=== PATIENT | male | born 1995 | race Caucasian/White ===

== ENCOUNTER 2017-04-30 01:55 | Emergency (ER) | payer OTHER, MEDICAID, SELFPAY ==
[2017-04-30 01:57] VITALS: BP 132/88; PULSE 92; RESP 17; TEMP 36.5; O2SAT 99; BMI 26.9
--- NOTE | 2017-04-30 02:35 | ED.DCSUM_ITS ---
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 His left arm was exposed to grease resulting in a grease burn that he was nursing at home. He reports there was a sudden increase in pain and swelling and redness beginning several hours ago resulting in his visit to the emergency department. He did report that the skin blister upon initial injury. He denies fevers. He reports pain with range of motion. His tetanus status is unknown. Physical Examination: [] Afebrile, vital signs stable. Young male in no acute distress. There is an area of healing burn on the left thumb, less than 1% body surface area, consistent with second-degree healing burn. There is an area of erythema around the burn consistent with early cellulitis of the thumb. There is no lymphatic streaking. There is pain on palpation and with range of motion testing. Good cap refill to the distal thumb. Test Results: [] None. Emergency Department Course and Treatment: [] Patient given tetanus update in the emergency department. Patient given oral Bactrim DS and Keflex in the emergency department. Patient given prescriptions for Bactrim DS and Keflex. He was instructed to take these medications for the next 10 days. He was instructed to have follow-up within 72 hours to make sure the wound was healing appropriately. Treatment Plan: [] Follow up with primary care physician and take outpatient antibiotics. Disposition: [] Discharge, stable. Impression: [] Left thumb burn less than 1% body surface area, second-degree. Left hand cellulitis This note was generated with [employer] dictation software. It may contain incorrect words, spelling, and punctuation that were not noted in review of the chart prior to signing ED Disposition - Plan for ED Patient: Chief Complaint: Burn Referrals: Care Physician,No Primary [Primary Care Provider] -
--- NOTE | 2017-04-30 02:35 | ED.DEP ---
ED Disposition - Plan for ED Patient: Disposition: Home or Assisted Living Chief Complaint: Burn Instructions: ED Burn Wound Check FU Infec Prescriptions: Cephalexin [Keflex] 500 mg PO Q6 #40 cap Smz/Tmp Ds [Bactrim Ds] 1 tab PO BID #20 tab Referrals: Care Physician,No Primary [Primary Care Provider] - Corporate,Care [GROUP OF PHYSICIANS] -
[2017-04-30] MEDS: Smz/Tmp Ds Tablet 1 TABLET PO (02:42)
[2017-04-30] MEDS: Diphth,Pertuss(Acell),Tet Vac 0.5 ML Vial IM (02:42)
[2017-04-30] MEDS: Cephalexin 250 MG Capsule 500 MG PO (02:42)
[2017-04-30 03:10] VITALS: PULSE 86; RESP 16; O2SAT 98
== END 2017-04-30 03:11 | disposition home or self-care (01) ==
PROVIDERS: Emergency Provider Emergency Medicine
DX: T23.212A Burn of second degree of left thumb (nail), initial encounter (principal); T31.0 Burns involving less than 10% of body surface; L03.012 Cellulitis of left finger; B96.89 Other specified bacterial agents as the cause of diseases classified elsewhere; X10.2XXA Contact with fats and cooking oils, initial encounter; Y93.89 Activity, other specified; Y92.511 Restaurant or cafe as the place of occurrence of the external cause; Y99.0 Civilian activity done for income or pay; I10 Essential (primary) hypertension; F32.9 Major depressive disorder, single episode, unspecified; E66.9 Obesity, unspecified; Z68.26 Body mass index [BMI] 26.0-26.9, adult; Z79.899 Other long term (current) drug therapy; Z72.0 Tobacco use
CPT/HCPCS: 90715; 99284

== ENCOUNTER 2017-05-18 11:29 | Emergency (ER) | payer MEDICAID, SELFPAY ==
[2017-05-18 11:30] VITALS: BP 148/80; PULSE 90; RESP 18; TEMP 36.4; O2SAT 98; BMI 25.7
[2017-05-18 11:46] VITALS: O2SAT 96
--- NOTE | 2017-05-18 11:49 | CT_ITS ---
STUDY: CT BRAIN WITHOUT CONTRAST REASON FOR EXAM: Male, 21 years old. Fall with injury to the head RADIATION DOSAGE (If Supplied By Facility): CTDIvol = ( 60.81 ) mGy, DLP = ( 1067.08 ) mGycm TECHNIQUE: Transaxial CT imaging of the brain was performed without administration of intravenous contrast material. Individualized dose optimization techniques were used for this CT. COMPARISON: 02/11/2017 FINDINGS: Normal soft tissue structures. Normal calvarium. Normal size ventricles and extra-axial spaces for the patient's age. Normal white matter tracts of the cerebral hemispheres. Normal basal ganglia and thalami. Normal brainstem. Normal cerebellum. There is no intracranial hemorrhage. There are no findings of an acute ischemic infarction. Normal visualized paranasal sinuses. CT/Brain/Head without Contrast IMPRESSION: Normal unenhanced CT scan of the brain. Electronically Signed: Anmol Cruz DO at 13:14 EST Tel , Service support ,
--- NOTE | 2017-05-18 11:52 | ED.DCSUM_ITS ---
- ER Visit Summary Date of Service: 05/18/17 Chief Complaint: [Fall] History of Present Illness: The patient is a 21 M [presents the emergency department after fall. He thinks he tripped over a towel in the kitchen. He at the back of his head but is not sure on what. He states he was unresponsive for about an hour. He complains of dizziness headache nausea. He has had no vomiting. He does not exactly remember the accident. He denies any neck pain or back pain or any other injury. He has a history of anxiety and GERD as well as hypertension. He takes HCTZ. He denies any chest pain or shortness of breath no abdominal pain no melena.] Physical Examination: [] NC contusion with over lying abrasion on occiput PERRL EOMI MIDFACE STABLE NO DENTAL TRAUMA NECK NONTENDER, FROM WITHOUT PAIN RRR NO MURMURS, RUBS, OR GALLOPS CTAB, CHEST NONTENDER, NO BRUISING ABDOMEN SOFT NONTENDER NORMAL BOWEL SOUNDS, NO ECCHYMOSIS EXTREMITIES WITH NO DEFORMITY, SWELLING OR ECCHYMOSIS, NVIT X4 CRANIAL NERVES IN TACT, NO MOTOR SENSORY DEFICITS BACK WITH NO MIDLINE TENDERNESS SKIN NORMAL, NO ABRASIONS OR LACERATIONS Test Results: [] Emergency Department Course and Treatment: [Labs were obtained and concerning for mild dehydration. He was given fluids. CT of the head shows no acute process. At this time patient will be given as prescription for Zofran head injury precautions and referral for follow-up. Him and his girlfriend were given precautions for which to return.] Treatment Plan: [] Disposition: [Discharge] Impression: Fall with head injury] This note was generated with [employer] dictation software. It may contain incorrect words, spelling, and punctuation that were not noted in review of the chart prior to signing ED Disposition - Plan for ED Patient: Chief Complaint: Fall Referrals: Care Physician,No Primary [Primary Care Provider] -
[2017-05-18] MEDS: Ondansetron 4 MG/2 ML Vial IV (12:00)
[2017-05-18 12:14] LABS: Absolute Lymphocyte Count 2.34 X10^3/ul (0.83-4.51); Absolute Neutrophil Count 3.5 X10^3/uL (2.0-7.7); Basophil# 0.02 X10^3/uL; Basophil% 0.3 % (0-1); Eosinophil# 0.15 X10^3/uL; Eosinophils% 2.2 % (0-5); Hematocrit 48.2 % (40-54); Hemoglobin 16.7 g/dl (13.0-16.5); Lymphocyte # 2.34 X10^3/ul (4.0); Lymphocyte % 34.1 % (19-41); Mean Corp Hgb Conc 34.6 g/gl (32-36); Mean Corpuscular Hgb 30.5 pg (27.0-32.0); Mean Platelet Vol. 10.1 fl (6.2-12.0); Monocyte# 0.82 X10^3/uL; Neutrophil # 3.53 X10^3/uL (2.7-7.7); Neutrophil % 51.4 % (47-70); POSITIVE COUNT NO; POSITIVE DIFFERENTIAL NO; POSITIVE MORPHOLOGY NO; Platelet Count 218 K/mm3 (150-450); RBC Distribution Width CV 11.9 % (11.6-14.6); RBC Distribution Width SD 38.2 fl (35.1-43.9); Red Blood Count 5.48 M/mm3 (4.6-6.2); White Blood Count 6.9 K/mm3 (4.4-11.0)
[2017-05-18 12:27] LABS: BUN 21 mg/dL (7-18); Creatinine, Serum 1.04 mg/dL (0.70-1.30); Glucose 90 mg/dL (74-106)
[2017-05-18 12:28] LABS: Anion Gap 7 (5-15); BUN/Creat Ratio 20.2 RATIO (10-20); Calcium,Total 9.1 mg/dL (8.5-10.1); Chloride 104 mmol/L (98-107); EST Glomerular Filtration Rate 94 mL/min (>60); Est Glom Filt Rate - Afr Amer 114 mL/min (>60); Estimated Creatinine Clearance 118.66 ml/min; Potassium 3.8 mmol/L (3.5-5.1); Sodium Level 139 mmol/L (136-145)
[2017-05-18] MEDS: 0.9% Normal Saline 1,000 ML 999 ML IV (12:46)
[2017-05-18 13:38] VITALS: BP 127/75; PULSE 69; RESP 13; O2SAT 95
--- NOTE | 2017-05-18 13:54 | ED.DEP ---
ED Disposition - Plan for ED Patient: Chief Complaint: Fall Instructions: ED Fall Uncertain Cause, ED Head Injury Closed Prescriptions: Ondansetron [Zofran Odt] 4 mg PO Q8H PRN PRN #10 tablet PRN Reason: Nausea Referrals: Care Physician,No Primary [Primary Care Provider] - Maritza Rainey DO [STAFF PHYSICIAN] - 3-5 Days
[2017-05-18 14:06] VITALS: BP 123/84; PULSE 71; RESP 16; O2SAT 98
== END 2017-05-18 14:07 | disposition home or self-care (01) ==
PROVIDERS: Emergency Provider Emergency Medicine
DX: S00.03XA Contusion of scalp, initial encounter (principal); S00.01XA Abrasion of scalp, initial encounter; W01.0XXA Fall on same level from slipping, tripping and stumbling without subsequent striking against object, initial encounter; Y93.9 Activity, unspecified; Y92.000 Kitchen of unspecified non-institutional (private) residence as the place of occurrence of the external cause; E86.0 Dehydration; I10 Essential (primary) hypertension; K21.9 Gastro-esophageal reflux disease without esophagitis; F41.9 Anxiety disorder, unspecified; Z79.899 Other long term (current) drug therapy; Z72.0 Tobacco use
CPT/HCPCS: 70450; 80048; 85025; 96361; 96374; 96375; 99283; J7030; A4216; J2405

== ENCOUNTER 2017-07-25 16:13 | Emergency (ER) | payer SELFPAY ==
[2017-07-25 16:14] VITALS: BP 138/73; PULSE 98; RESP 18; TEMP 36.6; O2SAT 97; BMI 25.7
--- NOTE | 2017-07-25 16:21 | RAD_ITS ---
STUDY: X-RAY - RIGHT ELBOW REASON FOR EXAM: Male, 21 years old. Fall TECHNIQUE: 3 view(s) of the elbow. COMPARISON: None. FINDINGS: There is no evidence of fracture or dislocation. There are no significant degenerative changes. There are no radiodense foreign bodies. RAD/Elbow min 3 Views IMPRESSION: No fracture or dislocation. Electronically Signed: Damián Snider, at 16:58 EDT Tel , Service support ,
--- NOTE | 2017-07-25 16:21 | RAD_ITS ---
STUDY: X-RAY - RIGHT WRIST REASON FOR EXAM: Male, 21 years old. Fall TECHNIQUE: 3 view(s) of the wrist were obtained. COMPARISON: None. FINDINGS: There is no evidence of fracture or dislocation. There are no significant degenerative changes. There are no radiodense foreign bodies. RAD/Wrist min 3 Views IMPRESSION: No fracture or dislocation. Electronically Signed: Damián Snider, at 16:59 EDT Tel , Service support ,
--- NOTE | 2017-07-25 16:22 | ED.VISSUMM ---
- ER Visit Summary Date of Service: 07/25/17 Chief Complaint: Right arm injury History of Present Illness: The patient is a 21 M presents to the emergency department right arm injury. The patient states a few days ago, he tripped on a pine cone he was playing with his dog. He landed on an outstretched right wrist. He states he has some mild pain, but over the past 3 days pain is worsened. He states is getting some tingling into his hand. He did not strike his head. He denies loss of consciousness. He denies any other injury. He has not taken anything for his pain. Physical Examination: Exam is relatively unremarkable. Skin is intact. Patient has 2+ radial ulnar pulses. Anterior interosseous, posterior interosseous, ulnar nerve preserved. There is no laxity of the wrist. He does have some mild tenderness to palpation. There is no pain with pronation or supination of the elbow but there is some pain with palpation. Shoulders normal. Compartments are soft. Test Results: [] Emergency Department Course and Treatment: The patient has normal pulses. His symptoms do seem more consistent with ligamentous or muscular strain. However, I did obtain x-rays of the wrist and elbow. There is no evidence of acute fracture dislocation. The patient will be treated with anti-inflammatories and antispasmodics. He will continue ice and elevation. He will be discharged, return with any worsening symptoms. Treatment Plan: [] Disposition: Discharge Impression: 1. Right wrist sprain This note was generated with [employer] dictation software. It may contain incorrect words, spelling, and punctuation that were not noted in review of the chart prior to signing ED Disposition - Plan for ED Patient: Chief Complaint: Upper Extremity Injury Instructions: ED Sprain Wrist Prescriptions: Naproxen [Naprosyn] 500 mg PO BID PRN #20 tab Cyclobenzaprine [Flexeril] 10 mg PO TID PRN #20 tab PRN Reason: Muscle Spasm Referrals: Care Physician,No Primary [Primary Care Provider] -
[2017-07-25] MEDS: Naproxen 500 MG Tablet PO (16:25)
[2017-07-25 17:08] VITALS: PULSE 90; RESP 14; O2SAT 98
== END 2017-07-25 17:08 | disposition home or self-care (01) ==
PROVIDERS: Emergency Provider Emergency Medicine
DX: S63.501A Unspecified sprain of right wrist, initial encounter (principal); W18.09XA Striking against other object with subsequent fall, initial encounter; Y93.89 Activity, other specified; Y92.9 Unspecified place or not applicable; Y99.8 Other external cause status
CPT/HCPCS: 73080; 73110; 99282

== ENCOUNTER 2018-09-10 12:58 | Emergency (ER) | payer MEDICAID, SELFPAY ==
[2018-09-10 12:58] VITALS: BP 112/76; PULSE 60; RESP 16; TEMP 36.4; O2SAT 100; BMI 24.4
[2018-09-10] MEDS: Naproxen 500 MG Tablet PO (13:54)
--- NOTE | 2018-09-10 14:00 | RAD_ITS ---
STUDY: X-RAY - LEFT SHOULDER REASON FOR EXAM: Male, 22 years old. Injury. Left shoulder pain for 2 days. TECHNIQUE: 4 view(s) of the shoulder. COMPARISON: None. FINDINGS: Normal glenohumeral articulation. Normal acromioclavicular joint. Normal acromion. Normal humeral head and visualized proximal humerus. The soft tissue structures are unremarkable. Normal visualized pulmonary apex. RAD/Shoulder min 2 Views IMPRESSION: Normal x-ray examination of the shoulder. Electronically Signed: Juan Francisco Sahu MD at 14:13 EDT Tel , Service support ,
--- NOTE | 2018-09-10 14:51 | ED.VISSUMM ---
- ER Visit Summary Date of Service: 09/10/18 Chief Complaint: Left shoulder injury History of Present Illness: The patient is a 22 M who injured his left shoulder yesterday. Patient states he went to jump up on his porch when his dog ran alongside him. His feet were knocked out from under him and he landed on his left arm. He is complaining of pain to the posterior left shoulder. He is right-hand dominant. He denies paresthesias. Physical Examination: Vital signs unremarkable. Patient sitting upright in bed no acute distress. Head and neck examination unremarkable with no sign of trauma. Heart is regular rate and rhythm. Lungs sounds are clear. Left upper extremity examination reveals tenderness over the posterior aspect of the left shoulder. He has normal range of motion. He is neurovascularly intact distally. Test Results: Left shoulder x-rays are unremarkable. Emergency Department Course and Treatment: Patient is given naproxen for pain. Test results are discussed with the patient. He will be given a sling to wear for comfort. He is instructed to come out of this 3 or 4 times a day to work on range of motion. He will be given prescription for naproxen. Treatment Plan: [] Disposition: Discharge Impression: Left shoulder sprain This note was generated with [employer] dictation software. It may contain incorrect words, spelling, and punctuation that were not noted in review of the chart prior to signing ED Disposition - Plan for ED Patient: Disposition: Home or Assisted Living Instructions: ED Sprain Shoulder Prescriptions: Naproxen [Naprosyn] 500 mg PO BID PRN PRN #20 tablet PRN Reason: Pain Referrals: Cr Guerra MD [STAFF PHYSICIAN] - 10-14 Days if not better
[2018-09-10 15:09] VITALS: PULSE 77; RESP 15
== END 2018-09-10 15:10 | disposition home or self-care (01) ==
PROVIDERS: Emergency Provider Physician Assistant Medical
DX: S43.402A Unspecified sprain of left shoulder joint, initial encounter (principal); W54.1XXA Struck by dog, initial encounter; Y93.39 Activity, other involving climbing, rappelling and jumping off; Y92.007 Garden or yard of unspecified non-institutional (private) residence as the place of occurrence of the external cause
CPT/HCPCS: 73030; 99283

== ENCOUNTER 2019-03-15 21:36 | Emergency (ER) | payer SELFPAY ==
[2019-03-15 21:37] VITALS: BP 145/76; PULSE 88; RESP 16; TEMP 36.6; O2SAT 99; BMI 24.4
--- NOTE | 2019-03-15 21:52 | CT_ITS ---
STUDY: CT ABDOMEN AND PELVIS WITHOUT CONTRAST REASON FOR EXAM: Male, 23 years old. Urinary frequency and left testicular tenderness. RADIATION DOSAGE (If Supplied By Facility): CTDIvol = ( 6.47 ) mGy, DLP = ( 355.72 ) mGycm TECHNIQUE: Transaxial images were obtained from the dome of the diaphragm to the symphysis pubis without oral contrast, and without intravenous contrast. Sagittal and coronal images were reconstructed. Individualized dose optimization techniques were used for this CT. COMPARISON: None. FINDINGS: The visualized lung bases are unremarkable. The visualized portions of the heart are within normal limits. Normal liver. Normal gallbladder and extrahepatic biliary system. Normal spleen. Normal pancreas. Normal bilateral adrenal glands. Normal right kidney. Normal left kidney. Normal visualized stomach. Normal small intestine. Normal colon. The appendix is visualized and appears normal. Normal abdominal aorta. Normal inferior vena cava. Normal retroperitoneum. Normal urinary bladder. Shotty bilateral inguinal lymph nodes. Normal abdominal wall. Normal osseous structures. CT/Abdomen/Pelvis without Cont IMPRESSION: Shotty bilateral inguinal lymph nodes. Largest long axis 2 centimeters. Otherwise, normal abdomen and pelvic CT exam. Electronically Signed: Maddi Fish MD at 22:38 EST , Service support ,
--- NOTE | 2019-03-15 21:53 | ED.VIS.GEN ---
History of Present Illness Chief Complaint: Male Pain/Injury Informant: Patient Onset: Today Context: Sudden Onset Timing: Intermittent Current Severity: Moderate Maximum Severity: Moderate Narrative: The patient is an otherwise healthy 23-year-old male with no significant medical history that presents to the emergency department with flank pain and bladder spasm. Patient states he woke this morning and felt like he had the urge to urinate. He states when he would go, he felt like he was having spasms in his bladder. He states it would come and go. He felt like there was some burning when he would urinate. He is currently sexually active but denies any risk of sexually transmitted disease. He denies any fevers or chills. He has no history of abdominal surgery. He is never had a kidney stone. Prior similar symptoms: No Recent Illness/Hospitalization: No Past Medical History - Allergies and Home Meds Allergies/Adverse Reactions: Allergies amoxicillin Adverse Reaction (Verified 09/10/18 13:01) Nausea Penicillins Adverse Reaction (Verified 09/10/18 13:01) Nausea Primary Care Physician: Care Physician,No Primary [Primary Care Provider] - Prior records reviewed: Yes Past Medical History: None Surgical History: no surgical history Smoking Status: Current every day smoker Review of Systems General: Denies: Chills, Fever, Sweats Eyes: Denies: Visual changes - bilaterally, Diplopia ENT: Denies: Rhinorrhea, Sore throat Cardiovascular: Denies: Chest pain, Palpitations Respiratory: Denies: Dyspnea, Cough, Dyspnea on exertion Gastrointestinal: Denies: Abdominal pain, Nausea, Vomiting, Diarrhea, Melena, Hematochezia Genitourinary: Reports: Dysuria, Frequency. Denies: Hematuria Musculoskeletal: Denies: Back pain, Extremity Pain Skin: Denies: Rash, Wounds Neurological: Denies: Headache, Weakness, Numbness Physical Exam Vital Signs/Narrative: Vital Signs Temp Pulse Resp BP Pulse Ox 03/15/19 21:37 97.8 F 88 16 145/76 H 99 Inital Vital Signs reviewed: Yes General: Well nourished, Well developed, No Acute Distress Head: Normocephalic, Atraumatic Eyes: Perrl, EOMI ENT: Moist mucous membranes, No rhinorrhea Neck: Supple, Nontender Cardiovascular: Regular rate, Regular rhythm, No murmurs Respiratory: No distress, CTA bilaterally, Chest nontender Abdomen: Soft, Nontender, Nondistended, Normal bowel sounds : - - Normal cremasteric. Testicles nontender. No evidence of torsion. No penile discharge. Back: Nontender, Normal Inspection Extremities: Nontender, No edema Skin: Normal color, No rash Neurological: Alert, Oriented x3, Cranial nerves II-XII grossly intact, Normal Strength, Normal Sensation Psychological: Normal affect, Normal Mood Diagnostic/Tx/Re-eval Clinical Impression(s) from Imaging Studies Abdomen/Pelvis CT 03/15/19 21:52 IMPRESSION: Shotty bilateral inguinal lymph nodes. Largest long axis 2 centimeters. Otherwise, normal abdomen and pelvic CT exam. Electronically Signed: Maddi Fish MD at 22:38 EST , Service support , Abnormal Lab Results 03/15/19 03/15/19 03/15/19 21:50 22:00 22:00 WBC 7.9 RBC 5.17 Hgb 15.7 Hct 44.9 MCV 86.8 MCH 30.4 MCHC 35.0 RDW Std Deviation 35.0 L RDW Coeff of Carlos 11.0 L Plt Count 231 MPV 10.0 Immature Gran % (Auto) 0.300 Neut % (Auto) 55.2 Lymph % (Auto) 33.2 [place] % (Auto) 8.6 Eos % (Auto) 1.9 Baso % (Auto) 0.8 Absolute Neuts (auto) 4.4 Absolute Lymphs (auto) 2.62 Nucleated RBC % 0 Sodium 141 Potassium 3.8 Chloride 109 H Carbon Dioxide 29.0 Anion Gap 3 L BUN 15 Creatinine 1.15 Estim Creat Clear Calc 105.49 Est GFR (MDRD) Af Amer 100 Est GFR (MDRD) Non-Af 83 BUN/Creatinine Ratio 13.0 Glucose 80 Calcium 8.9 Urine Color Yellow Urine Clarity Clear Urine pH 6.5 Ur Specific [place] 1.010 Urine Protein Negative Urine Glucose (UA) Normal Urine Ketones Negative Urine Occult Blood 150 H Urine Nitrite Negative Urine Bilirubin Negative Urine Urobilinogen Normal Ur Leukocyte Esterase Negative Urine RBC 0-5 SEEN Urine WBC 0 SEEN Ur Squamous Epith Cells 0-5 SEEN Urine Bacteria 0 SEEN Urine Mucus 0 SEEN - Medical Decision Making Patient symptoms do seem consistent with kidney stone. He is a colicky pain, bladder spasm, and pain is referred into his testicle. Urine was obtained which did show blood, but no evidence of infection. Labs are unremarkable. CT does not show any definitive evidence of stone, but based on his symptoms, I do feel that treating him would be appropriate. The patient is resting comfortably after Toradol. He will be given anti-inflammatories and antinausea medication. He was counseled on concerning symptoms and reasons to return. He will be discharged home. Impression 1. Urolithiasis ED Disposition - Plan for ED Patient: Instructions: KIDNEY STONE w/ Colic Prescriptions: Naproxen [Naprosyn] 500 mg PO BID PRN #20 tab Prescription Printed Ondansetron [Zofran Odt] 4 mg PO Q8H PRN PRN #10 tab PRN Reason: Nausea Prescription Printed Referrals: Care Physician,No Primary [Primary Care Provider] - Joaquin Maddox MD [STAFF PHYSICIAN] -
[2019-03-15 21:54] LABS: Bacteria 0 SEEN /hpf (None Seen); Mucous, Urine 0 SEEN /hpf (<or=2+); White Blood Cells 0 SEEN /hpf (0-5)
[2019-03-15 22:00] LABS: Color, Urine Yellow (Yellow); Glucose, Dipstick Normal (Normal); Ketone-Dipstick Negative (Negative); Leukocyte Esterase-Dipstick Negative /ul (Negative); Nitrite-Dipstick Negative (Negative); Occult Blood-Urine 150 /ul (Negative); Protein-Dipstick Negative (Negative); Urine Bilirubin Dipstick Negative (Negative); Urine Clarity Clear (Clear); Urine Urobilinogen Normal (Normal); Urine pH 6.5 (5.0 - 8.0)
[2019-03-15] MEDS: 0.9% Normal Saline 1,000 ML 250 ML IV (22:09)
[2019-03-15] MEDS: Ondansetron 4 MG/2 ML Vial IV (22:09)
[2019-03-15] MEDS: Ketorolac 30 MG/ML Syringe IV (22:09)
[2019-03-15 22:10] LABS: Red Blood Cells-Urine 0-5 SEEN /hpf (0-5); Squamous Epithelial Cells - UA 0-5 SEEN /hpf (0-5)
[2019-03-15 22:13] LABS: Absolute Lymphocyte Count 2.62 X10^3/uL (0.83-4.51); Absolute Neutrophil Count 4.4 X10^3/uL (2.0-7.7); Basophil# 0.06 X10^3/uL; Basophil% 0.8 % (0-1); Eosinophil# 0.15 X10^3/uL; Eosinophils% 1.9 % (0-5); Hematocrit 44.9 % (40-54); Hemoglobin 15.7 g/dL (13.0-16.5); Lymphocyte # 2.62 X10^3/ul (4.0); Lymphocyte % 33.2 % (19-41); Mean Corpuscular Hgb 30.4 pg (27.0-32.0); Mean Corpuscular Volume 86.8 fL (80-94); Monocyte# 0.68 X10^3/uL; Monocyte% 8.6 % (0-10); NRBC Flagged by Analyzer 0 % (0-5); Neutrophil # 4.37 X10^3/uL (2.7-7.7); Neutrophil % 55.2 % (47-70); Platelet Count 231 K/mm3 (150-450); Red Blood Count 5.17 M/mm3 (4.6-6.2); White Blood Count 7.9 K/mm3 (4.4-11.0)
[2019-03-15 22:34] LABS: Anion Gap 3 (5-15); BUN 15 mg/dL (7-18); Calcium,Total 8.9 mg/dL (8.5-10.1); Chloride 109 mmol/L (98-107); Creatinine, Serum 1.15 mg/dL (0.70-1.30); EST Glomerular Filtration Rate 83 mL/min (>60); Est Glom Filt Rate - Afr Amer 100 mL/min (>60); Estimated Creatinine Clearance 105.49 ml/min; Glucose 80 mg/dL (74-106); Potassium 3.8 mmol/L (3.5-5.1); Sodium Level 141 mmol/L (136-145)
== END 2019-03-15 22:50 | disposition home or self-care (01) ==
PROVIDERS: Emergency Provider Emergency Medicine
DX: N20.0 Calculus of kidney (principal); F17.200 Nicotine dependence, unspecified, uncomplicated
CPT/HCPCS: 74176; 80048; 81001; 85025; 96361; 96374; 96375; 99283; J7030; A4216; J2405

== ENCOUNTER 2019-05-10 19:02 | Emergency (ER) | payer SELFPAY ==
[2019-05-10 19:03] VITALS: BP 118/73; PULSE 86; RESP 16; TEMP 36.5; O2SAT 100; BMI 25.5
--- NOTE | 2019-05-10 19:15 | ED.DCSUM_ITS ---
- ER Visit Summary Date of Service: 05/10/19 Chief Complaint: [Ear pain and sore throat] History of Present Illness: The patient is a 23 M [presents to the emergency department complaint of a sore throat that he has had for up to 1 month. Patient states that his ear started hurting 2 weeks ago. Patient complains of sensitivity to his scalp. Patient has history of tonsil stones. He denies any fevers or recent illness otherwise. Patient denies any cough.] Physical Examination: [HEENT-PERRLA, EOMI. Cranial nerves II through XII grossly intact. TMs clear. Mucous membranes moist. No adenopathy. Patient does have some faint diffuse pharyngeal erythema. Tonsils are small and are +1. No exudates noted. Patient does have a small left tonsil stone noted. No trismus on exam. Cardiovascular-regular rate and rhythm without murmur or ectopy Lungs-clear to auscultation, chest wall stable without crepitus or subcu emphysema Abdomen-normoactive bowel sounds, soft, nontender, no rebound or rigidity, no peritoneal signs. Extremities-intact ?4, normal range of motion, normal pulses, atraumatic] Test Results: [Patient had a throat culture sent] Emergency Department Course and Treatment: [We will start clindamycin p.o.] Treatment Plan: [Patient will be treated with clindamycin and referred to ENT for follow-up.] Disposition: [Discharged home in stable condition] Impression: [Pharyngitis-report pending] This note was generated with [employer] dictation software. It may contain incorrect words, spelling, and punctuation that were not noted in review of the chart prior to signing ED Disposition - Plan for ED Patient: Referrals: Care Physician,No Primary [Primary Care Provider] -
--- NOTE | 2019-05-10 19:17 | ED.DEP ---
ED Disposition - Plan for ED Patient: Instructions: PHARYNGITIS, Report Pending Prescriptions: Clindamycin HCl [Cleocin] 300 mg PO Q6H #40 cap Prescription Printed Referrals: Care Physician,No Primary [Primary Care Provider] - Yuniel Mcmillan MD [STAFF PHYSICIAN] - 3-5 Days
[2019-05-10] MEDS: Clindamycin HCl 150 MG Capsule 300 MG PO (19:26)
== END 2019-05-10 19:46 | disposition home or self-care (01) ==
LOC: ED 19:31
PROVIDERS: Emergency Provider Emergency Medicine
DX: J02.9 Acute pharyngitis, unspecified (principal); F12.90 Cannabis use, unspecified, uncomplicated; Z72.0 Tobacco use
CPT/HCPCS: 87070; 99283